=== PATIENT | male | born 1995 | race Two or more races ===

== ENCOUNTER 2018-09-12 15:33 | Emergency (ER) | payer OTHER ==
[2018-09-12] MEDS ORDERED: DIPH/PERTUSS(ACELL)/TETANUS VAC/PF 0.5 ML SYR (>=10YO) IM ONE (17:26)
[2018-09-12] MEDS ORDERED: AMOXICILLIN TR/POT CLAVULANATE 500-125 MG TAB PO ONE (17:55)
--- NOTE | 2018-09-12 18:02 | ER Document Report ---
ED Fall - General Chief Complaint: Ear and head laceration Stated Complaint: EAR LACERATION Time Seen by Provider: 09/12/18 17:09 Primary Care Provider: IMAN GREENWOOD MD [ACTIVE STAFF] - Follow up as needed ANGELICA MARSHALL DO [ASSOCIATE] - Follow up as needed Mode of Arrival: Ambulatory Information source: Patient Notes: 23-year-old male presented to ED for complaint of lacerations to the right ear and head after he fell through a glass door yesterday. He states he was at work when he fell through the glass door at work. He states that the person with him offered to bring him to the hospital and his mother offered to bring him to the hospital multiple times and he refused. He states that mother dressed his ear for him to stop the bleeding last night and then today he decided he needed to come in and get seen and get treatment for the ear when he realized how bad the lacerations were. It is been more than 24 hours since he injured his head and ear. TRAVEL OUTSIDE OF THE [place] IN LAST 30 DAYS: No - HPI Occurred: Yesterday Where: Outdoors, Public place, Work Associated symptoms: None Location of injury/pain: Head - The right scalp ear and face Quality of pain: Sharp Severity: Moderate Pain Level: 2 - Related data Allergies/Adverse Reactions: No Known Allergies Allergy (Unverified 09/12/18 15:37) Past Medical History - General Information source: Patient - Social History Smoking Status: Current Every Day Smoker Cigarette use (# per day): Yes - Pack per day Chew tobacco use (# tins/day): No Smoking Education Provided: Yes - 4 minutes Frequency of alcohol use: Heavy - 6 pack a day Drug Abuse: None Occupation: Clinical Technologist Lives with: Alone Family History: Reviewed & Not Pertinent Patient has suicidal ideation: No Patient has homicidal ideation: No - Past Medical History Cardiac Medical History: Reports: None Pulmonary Medical History: Reports: None EENT Medical History: Reports: None Neurological Medical History: Reports: None Endocrine Medical History: Reports: None Renal/ Medical History: Reports: None Malignancy Medical History: Reports None GI Medical History: Reports: None Musculoskeletal Medical History: Reports Hx Musculoskeletal Trauma Skin Medical History: Reports None Psychiatric Medical History: Reports: None Traumatic Medical History: Reports: Hx Fractures - Left leg Infectious Medical History: Reports: None Surgical Hx: Negative Past Surgical History: Reports: None - Immunizations Hx Diphtheria, Pertussis, Tetanus Vaccination: Yes - 09/12/2018 Review of Systems - Review of Systems Constitutional: No symptoms reported EENT: Ear pain - Multiple lacerations through multiple areas of the right ear there are flaps of skin and torn through multiple areas of the cartilage Cardiovascular: No symptoms reported Respiratory: No symptoms reported Gastrointestinal: No symptoms reported Genitourinary: No symptoms reported Male Genitourinary: No symptoms reported Musculoskeletal: No symptoms reported Skin: No symptoms reported Hematologic/Lymphatic: No symptoms reported Neurological/Psychological: No symptoms reported Physical Exam - Vital signs Vitals: Temp Pulse Resp BP Pulse Ox 100.0 F 109 H 16 153/97 H 100 09/12/18 15:45 09/12/18 15:45 09/12/18 15:45 09/12/18 15:45 09/12/18 15:45 Interpretation: Normal - General General appearance: Appears well, Alert - HEENT Head: Open wounds - Multiple scalp lacerations to the right side of the head where he fell through a glass door at work cleaned well with soap and water rinsed with saline, Tenderness Eyes: Normal Conjunctiva: Normal Cornea: Normal Eyelashes: Normal Pupils: PERRL Ears: Other - Multiple lacerations through multiple areas of the right ear there are flaps of skin and torn through multiple areas of the cartilage External canal: Blood in canal - Due to multiple lacerations to the outer ear Tympanic membrane: Normal Sinus: Normal Nasal: Normal Mouth/Lips: Normal Mucous membranes: Normal Pharynx: Normal Neck: Normal - Respiratory Respiratory status: No respiratory distress Chest status: Nontender Breath sounds: Normal Chest palpation: Normal - Cardiovascular Rhythm: Regular Heart sounds: Normal auscultation Murmur: No - Abdominal Inspection: Normal Distension: No distension Bowel sounds: Normal Tenderness: Nontender Organomegaly: No organomegaly - Back Back: Normal, Nontender - Extremities General upper extremity: Normal inspection, Nontender, Normal color, Normal ROM, Normal temperature General lower extremity: Normal inspection, Nontender, Normal color, Normal ROM, Normal temperature, Normal weight bearing. No: Eran's sign - Neurological Neuro grossly intact: Yes Cognition: Normal Orientation: AAOx4 [place] Coma Scale Eye Opening: Spontaneous [place] Coma Scale Verbal: Oriented [place] Coma Scale Motor: Obeys Commands [place] Coma Scale Total: 15 Speech: Normal Motor strength normal: LUE, RUE, LLE, RLE Sensory: Normal - Psychological Associated symptoms: Normal affect, Normal mood - Skin Skin Temperature: Warm Skin Moisture: Dry Skin Color: Normal Skin irregularity: Laceration - Multiple lacerations through multiple areas of the right ear there are flaps of skin and torn through multiple areas of the cartilage, multiple superficial lacerations to the right side of the scalp to the face in front of the ear Location of irregularity: Face, Scalp, Ears - Right Irregularity with: Tenderness Course - Re-evaluation Re-evalutation: 09/12/18 18:23 All lacerations cleaned well with soap and water rinsed with saline. I consulted Dr. Velasco for the multiple lacerations to the ear face and scalp he came and examined the patient states that he needed to follow-up with ENT or plastic surgery tomorrow. Patient was started on Augmentin and given tetanus immunization in the emergency room. Patient brother and mother both verbalized that they would follow-up with 1 of these 2 doctors tomorrow - Vital Signs Vital signs: Temp Pulse Resp BP Pulse Ox 98.9 F 89 16 148/92 H 100 09/12/18 18:36 09/12/18 18:36 09/12/18 18:36 09/12/18 18:36 09/12/18 18:36 Discharge - Discharge Clinical Impression: fall through glass yesterday, ear lacerations with delay in treatments Laceration of scalp with delay in treatment Qualifiers: Encounter type: initial encounter Qualified Code(s): S01.01XA - Laceration without foreign body of scalp, initial encounter Condition: Stable Disposition: HOME, SELF-CARE Additional Instructions: NON-SUTURED LACERATION: Your laceration did not require suturing. Some lacerations cannot be sutured because of increased infection risk, while others simply don't need stitches because they are shallow or very short. Your injury should be protected while it heals. Usually complete healing takes 10 to 14 days. Keep the dressing clean and dry, and change it every day. If you notice increasing pain, redness, swelling, drainage, or tender lumps in the armpit or groin above the injury, infection may be present. You should call the doctor at once. SOAP CLEANSING: Gently wash the wound daily using a mild soap (like Ivory, Phisoderm, Neutrogena). Use warm water, rubbing gently until all debris, ooze, and crusting have been washed from the wound. Allow to dry briefly (about 10 minutes) after cleaning. Repeat this cleansing at least three times a day for the first two days and then once or twice a day. TETANUS IMMUNIZATION GIVEN: You have been given an immunization against tetanus. Please record this in your records. In general, a booster is needed only once every 10 years. The tetanus shot protects against tetanus or "lockjaw," which is a complication of certain wound infections (the tetanus shot cannot protect against the actual infection). The immunization site may become warm and red due to local reaction. If this occurs, apply warm compresses and take aspirin or ibuprofen to reduce inflammation and discomfort. Return for evaluation if the reaction becomes severe. Augmentin Augmentin is a mixture of amoxicillin and clavulanate. Amoxicillin is a member of the penicillin family. It covers the germs likely to cause ear, bronchial, and urinary infections better than plain penicillin. The addition of clavulanate allows it to cover staph infections of the skin, as well as resistant cases of ear and sinus infections. Your physician has chosen Augmentin for you because of the special nature of your situation. Augmentin is best taken with meals. Nausea after taking the medication is rare, but can occur. Diarrhea can occur, particularly in small children. Vaginal yeast infections, and oral thrush in infants are also common. Contact your physician if these problems occur. Allergy to penicillins is common. If you have had an allergic reaction to any drug of the penicillin family, you should never take any other penicillin. Notify your doctor at once if you develop hives, shortness of breath, swelling, or faintness. Please follow-up with plastic surgery or ENT in the morning by phone and schedule a visit as soon as possible this year needs to be treated by either plastic surgery or ENT soon. Prescriptions: Amox Tr/Potassium Clavulanate [Augmentin 875-125 Tablet] 1 tab PO BID 10 Days tablet Forms: Elevated Blood Pressure, Smoking Cessation Education, Return to Work Referrals: IMAN GREENWOOD MD [ACTIVE STAFF] - Follow up as needed ANGELICA MARSHALL DO [ASSOCIATE] - Follow up as needed
[2018-09-12 18:39] VITALS: BP 148/92
--- NOTE | 2018-09-12 21:32 | ER Document Report ---
Doctor's Note Notes: I personally and independently obtained patient history and examined the patient in conjunction with the APC and agree with the assessment, treatment plan and disposition of the patient as recorded by the APC, and have reviewed the APC's note. HISTORY OF PRESENT ILLNESS: Patient is a 23-year-old male that presents to the emergency department for chief complaint of lacerations to the scalp and right ear. Patient states that he fell through glass door over 24 hours ago, and eventually decided come to the emergency department to have this evaluated. Not up-to-date with his tetanus. ROS: Constitutional: Negative for fever. Cardiovascular: Negative for chest pain. Respiratory: Negative for shortness of breath. Gastrointestinal: Negative for vomiting or abdominal pain Musculoskeletal: Negative for arm, leg or back pain Skin: Negative for rash. Neurological: Negative for weakness or numbness. Other than noted above, the 12 point review of systems was reviewed with the patient and were negative, all pertinent findings are included in the HPI. PHYSICAL EXAMINATION: Vital signs reviewed, nursing noted reviewed. GENERAL: Well-appearing, well-nourished and in no acute distress. HEAD: Patient has a long scalp laceration, that seems rather superficial along the temporal portion of the scalp, he has a laceration through the superior aspect of the pinna, and a laceration within the penis itself in a curvilinear fashion, with devitalized tissue, there is not appear to be active bleeding at this time, or evidence of infection. EYES: Eyes appear normal, conjunctiva are normal. ENT: nares patent, oropharynx clear without exudates. Moist mucous membranes. NECK: Normal range of motion, supple without lymphadenopathy LUNGS: Breath sounds clear to auscultation bilaterally and equal. No wheezes rales or rhonchi. HEART: Regular rate and rhythm without murmurs ABDOMEN: Soft, nontender, normoactive bowel sounds. No rebound, guarding, or rigidity. No masses appreciated. EXTREMITIES: Nontender, good range of motion, no pitting or edema. NEUROLOGICAL: No focal neurological deficits. Moves all extremities spontaneously Motor and sensory grossly intact on exam. PSYCH: Normal mood, normal affect. SKIN: Warm, Dry, normal turgor, no rashes or lesions noted on exposed skin MEDICAL DECISION MAKING: Patient had extensive lacerations to the right scalp, and right ear, these wounds are over 24 hours old, would not recommend suturing at this time and recommended antibiotic coverage, and follow-up with ENT or plastics, patient was agreeable to this plan of care he was updated on his tetanus. And given antibiotics. Please review detail APC documentation. *Note is created using voice recognition software and may contain spelling, syntax or grammatical errors.
== END 2018-09-12 18:36 | disposition home or self-care (01) ==
LOC: ER 15:33
DX: S01.311A Laceration without foreign body of right ear, initial encounter (principal); S01.01XA Laceration without foreign body of scalp, initial encounter; W13.8XXA Fall from, out of or through other building or structure, initial encounter; W25.XXXA Contact with sharp glass, initial encounter; Y99.0 Civilian activity done for income or pay; F17.210 Nicotine dependence, cigarettes, uncomplicated; Z71.6 Tobacco abuse counseling
CPT/HCPCS: 90471; 90715; 99282; 99406

== ENCOUNTER 2018-09-15 12:23 | Day surgery (SDC) | payer OTHER ==
[~2018-09-15 12:23] MED LIST: SUCCINYLCHOLINE CHLORIDE INJ 200 MG/10 ML VIAL ONE
[2018-09-15] MEDS ORDERED: CEFAZOLIN 1 GM/D5W RTU 1 GM/50 ML RTUPB IV ONE (12:27)
[2018-09-15] MEDS ORDERED: ACETAMINOPHEN 1,000 MG/100 ML RTUPB IV ONE (14:57)
[2018-09-15] MEDS ORDERED: FENTANYL CITRATE INJ/PF 100 MCG/2 ML AMPUL ONE (14:57)
[2018-09-15] MEDS ORDERED: PROPOFOL INJ 200 MG/20 ML VIAL IV ONE (14:57)
[2018-09-15] MEDS ORDERED: MIDAZOLAM 2 MG/2 ML INJ ONE (14:57)
[2018-09-15] MEDS ORDERED: ONDANSETRON HCL INJ/PF 4 MG/2 ML SDV ONE (14:57)
[2018-09-15] MEDS ORDERED: DEXAMETHASONE SOD PHOSPHATE INJ 4 MG/1 ML VIAL ONE (14:57)
[2018-09-15] MEDS ORDERED: DEXMEDETOMIDINE INJ 80 MCG/20 ML VIAL IV ONE (15:57)
[2018-09-15] MEDS ORDERED: MEPERIDINE HCL/PF INJ 25 MG/1 ML DISP.SYRIN IV PRN (16:08)
[2018-09-15] MEDS ORDERED: MORPHINE SULFATE 10 MG/ML INJ IV PRN (16:08)
[2018-09-15] MEDS ORDERED: PROMETHAZINE HCL INJ 25 MG/1 ML VIAL IV PRN (16:08)
[2018-09-15] MEDS ORDERED: DIPHENHYDRAMINE HCL 50 MG/ML VIAL IV PRN (16:08)
[2018-09-15] MEDS ORDERED: FENTANYL CITRATE INJ/PF 100 MCG/2 ML AMPUL IV PRN ×3 (16:08)
[2018-09-15] MEDS ORDERED: BACITRACIN ZINC OINTMENT 15 GM ONE (18:04)
[2018-09-15] MEDS ORDERED: ONDANSETRON HCL INJ/PF 4 MG/2 ML SDV IV PRN (18:31)
[2018-09-15] MEDS ORDERED: HYDROCODONE/ACETAMINOPHEN 5-325 MG TABLET PO PRN (18:31)
[2018-09-15 19:41] VITALS: BP 148/89
--- NOTE | 2018-09-20 19:43 | OPERATIVE REPORT E ---
Operative Report NAME: SHYLA ZHANG : 1995 AGE: 23Y DATE OF SURGERY: 09/15/2018 ROOM: PREOPERATIVE DIAGNOSES: 1. Complex right ear trauma with loss of tissue and cartilage. 2. Complex right head and scalp trauma with numerous lacerations and tissue loss. 3. Right head/scalp/ear pain. POSTOPERATIVE DIAGNOSES: 1. Complex right ear trauma with loss of tissue and cartilage. 2. Complex right head and scalp trauma with numerous lacerations and tissue loss. 3. Right head/scalp/ear pain. OPERATION PERFORMED: 1. Complex layered closure of the right ear traumatic injuries with total laceration/injury length were greater than 4 cm. 2. Complex layered closure of the right head/scalp lacerations/injuries with total overall length greater than 10 cm. 3. Washout and debridement of the right head/scalp/ear injuries. SURGEON: ANGELICA MARSHALL D.O. ANESTHESIA: General endotracheal tube. ANESTHESIA STAFF: QUANG Melendrez ESTIMATED BLOOD LOSS: None. IV FLUIDS: None. DRAINS: None. COMPLICATIONS: None. SPONGE COUNT: Verified. NEEDLE COUNT: Verified. MATERIALS FORWARDED SPECIMEN: None. FINDINGS: 1. Traumatic complex right ear injury with disruption of tissue through the anterior ear, cartilage, and into the underlying scalp. There was loss of tissue and cartilage in these areas. There was an avulsion flap at the anterior/superior ear that was noted to be rolled/curled under. The overall length of ear injury totaled over 4 cm. Right ear and right preauricular aspect. 2. There where scattered right head/scalp lacerations/avulsion injuries with missing tissue. These injuries totalled greater than 10 cm in overall length. 3. There were no foreign bodies/glass identified during wound washout and debridement. INDICATIONS: This is a 23-year-old male patient who was seen and evaluated urgently in the [facility] office. The patient had reportedly been at work at the [employer] when he was tripped/pushed through glass sustaining multiple injuries to the right head/scalp/ear. The patient did not go to the [facility] for evaluation until 09/12/2018. While there he reportedly had the wounds evaluated and washed, but there was no definitive care provided. The patient reports that ENT was not contacted, but he was told to follow up with [facility] the following week. The patient in clinic was noted to have multiple traumatic/lacerations/avulsion injuries about the right head/scalp/ear with loss of skin/tissue/cartilage in these areas. Recommendation and plan was for definitive management in the main operating room setting with complex repair of all of these injuries and washout and debridement of all of the injury sites. The procedure, the risks and complications which included additional tissue loss due to the delay in the patient coming into the emergency room for evaluation and delay in the patient getting referred for ENT care was discussed with the patient in detail, which he voiced an understanding of and agreed with. The patient desired to proceed with definitive care in the main operating room setting and voiced an understanding of all of the risks and complications and was in agreement and consent was obtained. DETAILS OF PROCEDURE: The patient was taken to the main operating room and was placed on the operating room table in the supine position. Appropriate monitors were placed. Using mask and IV access general anesthesia was induced. The patient was transorally intubated without difficulty. The patient underwent an ear/head/scalp evaluation on the right with local anesthetic with epinephrine injected about the injury sites. Once complete the patient was prepped and draped in a sterile fashion for complex repair of these injuries. The patient underwent further wound washout and debridement. Medical photo, documentation was recorded during the case. At this point the scalp/right head was first addressed with complex layered closure of all lacerations/avulsion injury sites using 4-0 Monocryl suture for deep tissue approximation followed by 5-0 Prolene suture used for skin reapproximation. Once complete attention was turned to the right ear. The cartilage was reapproximated with 5-0 PDS suture. The anterior ear skin deep to the superior helix and in the area of the fossa triangularis was reapproximated with 5-0 Chromic suture. Once complete the remaining skin reapproximation was completed with 6-0 Prolene suture at the right ear and right preauricular aspect. The right ear anterior avulsion flap was mobilized with necrotic tissue trimmed. Next with use of 5-0 PDS suture the avulsion flap was set in place. Skin reapproximation was completed with 6-0 Prolene suture. At this point there was a 27 gauge needle that was used to perform multiple perforations through the avulsion flap area. This was followed by applying a pressure bolster dressing at the anterior and posterior aspect of the superior helix of the superior aspect of the ear and these Xeroform bolsters were held in place with [id number] 5-0 Prolene suture. Once complete the patient's head and ear were cleaned followed by placement of bacitracin ointment. The patient was returned to the anesthesia staff and was allowed to emerge from general anesthesia. The patient was extubated in the main operating room without difficulty and was then transported to the postanesthesia recovery unit in stable condition. There were no complications. DICTATING PHYSICIAN: ANGELICA MARSHALL D.O. [id number] PHY#: [id number] ID: [id number] JOB#: [id number] ACCT: [id number] cc:ANGELICA MARSHALL D.O. >
== END 2018-09-15 19:41 | disposition home or self-care (01) ==
LOC: OROUT 12:23
PROVIDERS: ATTEND Otolaryngology
DX: S01.01XA Laceration without foreign body of scalp, initial encounter (principal); S01.312A Laceration without foreign body of left ear, initial encounter; W01.110A Fall on same level from slipping, tripping and stumbling with subsequent striking against sharp glass, initial encounter; Y92.69 Other specified industrial and construction area as the place of occurrence of the external cause; Y99.0 Civilian activity done for income or pay; H61.119 Acquired deformity of pinna, unspecified ear; H92.01 Otalgia, right ear; M95.2 Other acquired deformity of head; R51 Headache
CPT/HCPCS: 13152; 13121; 13122; J2250; J3490 ×2; J0690; J1100; J3010; J0330; J2405; J2704; J0131; 300